=== PATIENT | female | born 1955 | race Caucasian/White ===

== ENCOUNTER → 2016-10-10 | Outpatient (CLI) | payer BC | LOC: LAB 10:05 | DX: R30.0 Dysuria (principal) ==

== ENCOUNTER → 2017-05-19 | Outpatient (CLI) | payer OTHER ==
[2017-05-19 12:55] LABS: EOS # 0.3 (0.04-0.40); EOS % 5.4 % (1.0-5.0); HEMATOCRIT 43.2 % (37.0-47.0); HEMOGLOBIN 14.6 g/dL (12.5-16.0); MEAN CELL VOLUME 90 fl (78-100); MEAN CORPUSCULAR HEMOGLOBIN 30 pg (27-31); MEAN CORPUSCULAR HGB CONC 34 g/dL (33-37); MEAN PLATELET VOLUME 8.5 fl (7.4-10.4); MONO # 0.3 (0.20-0.80); NEU # 2.2 (1.40-6.50); PLATELET COUNT 254 K/mm3 (130-400); RED BLOOD COUNT 4.81 M/mm3 (4.10-5.30); RED CELL DISTRIBUTION WIDTH 12.7 % (11.5-14.5); WHITE BLOOD COUNT 4.8 K/mm3 (4.8-10.8)
[2017-05-19 13:01] LABS: ALBUMIN 4.4 g/dL (3.5-5.0); BUN/CREATININE RATIO 23.6 (6.0-26.0); CALCIUM 10.2 mg/dL (8.4-10.2); POTASSIUM 4.1 mmol/L (3.6-5.0); TOTAL BILIRUBIN 0.8 mg/dL (0.2-1.3); TOTAL PROTEIN 8.8 g/dL (6.3-8.2)
[2017-05-19 14:11] LABS: ERYTHROCYTE SEDIMENTATION RATE 33 mm/hr (0-30)
[2017-05-20 13:55] LABS: T3 TOTAL 165 ng/dL (87-178)
== END ==
LOC: RAD 12:31
PROVIDERS: Internal Medicine
DX: M25.561 Pain in right knee (principal); Z00.00 Encounter for general adult medical examination without abnormal findings; E05.10 Thyrotoxicosis with toxic single thyroid nodule without thyrotoxic crisis or storm; M85.80 Other specified disorders of bone density and structure, unspecified site

== ENCOUNTER → 2019-01-22 | Outpatient (CLI) | payer OTHER ==
[2019-01-22 11:27] LABS: EOS # 0.3 (0.04-0.40); EOS % 4.4 % (1.0-5.0); HEMATOCRIT 42.4 % (37.0-47.0); HEMOGLOBIN 14.1 g/dL (12.5-16.0); MEAN CELL VOLUME 91 fl (78-100); MEAN CORPUSCULAR HEMOGLOBIN 30 pg (27-31); MEAN CORPUSCULAR HGB CONC 33 g/dL (33-37); MONO # 0.5 (0.20-0.80); NEU # 2.9 (1.40-6.50); PLATELET COUNT 247 K/mm3 (130-400); RED BLOOD COUNT 4.67 M/mm3 (4.10-5.30); RED CELL DISTRIBUTION WIDTH 12.6 % (11.5-14.5); WHITE BLOOD COUNT 5.7 K/mm3 (4.8-10.8)
[2019-01-22 12:47] LABS: ERYTHROCYTE SEDIMENTATION RATE 39 mm/hr (0-30)
[2019-01-22 12:51] LABS: ALBUMIN 4.2 g/dL (3.4-4.8)
[2019-01-22 12:52] LABS: POTASSIUM 4.8 mmol/L (3.5-5.1)
[2019-01-22 12:53] LABS: CALCIUM 10.1 mg/dL (8.3-10.5)
[2019-01-22 12:54] LABS: TOTAL PROTEIN 7.7 g/dL (6.2-8.1)
[2019-01-22 12:56] LABS: TOTAL BILIRUBIN 0.6 mg/dL (0.2-1.2)
[2019-01-23 01:24] LABS: T3 TOTAL 109 ng/dL (87-178)
== END ==
LOC: LAB 11:03
PROVIDERS: Internal Medicine
DX: Z00.00 Encounter for general adult medical examination without abnormal findings (principal); E05.10 Thyrotoxicosis with toxic single thyroid nodule without thyrotoxic crisis or storm; M85.80 Other specified disorders of bone density and structure, unspecified site

== ENCOUNTER → 2020-05-05 | Outpatient (CLI) | payer MEDICARE ==
[2020-05-05 09:52] LABS: EOS # 0.3 (0.04-0.40); EOS % 5.9 % (1.0-5.0); HEMATOCRIT 42.4 % (37.0-47.0); LYMPH# 1.8 (1.50-4.00); MEAN CELL VOLUME 91 fl (78-100); MEAN CORPUSCULAR HEMOGLOBIN 30 pg (27-31); MEAN CORPUSCULAR HGB CONC 33 g/dL (33-37); MEAN PLATELET VOLUME 8.1 fl (7.4-10.4); MONO # 0.5 (0.20-0.80); NEU # 2.4 (1.40-6.50); PLATELET COUNT 237 K/mm3 (130-400); RED BLOOD COUNT 4.67 M/mm3 (4.10-5.30); RED CELL DISTRIBUTION WIDTH 12.5 % (11.5-14.5); WHITE BLOOD COUNT 5.1 K/mm3 (4.8-10.8)
[2020-05-05 10:05] LABS: ALBUMIN 4.1 g/dL (3.4-4.8); POTASSIUM 4.2 mmol/L (3.5-5.1)
[2020-05-05 10:06] LABS: CALCIUM 9.5 mg/dL (8.3-10.5)
[2020-05-05 10:09] LABS: TOTAL BILIRUBIN 0.7 mg/dL (0.2-1.2)
[2020-05-05 10:58] LABS: ERYTHROCYTE SEDIMENTATION RATE 37 mm/hr (0-30)
[2020-05-05 21:54] LABS: T3 TOTAL 112 ng/dL (58-159)
== END ==
LOC: RAD 09:32
PROVIDERS: Internal Medicine
DX: E05.10 Thyrotoxicosis with toxic single thyroid nodule without thyrotoxic crisis or storm (principal)

== ENCOUNTER → 2021-05-08 | Outpatient (CLI) | payer MEDICARE ==
[2021-05-08 10:14] LABS: BASO # 0.03 K/mm3 (0.02-0.10); EOS # 0.22 K/mm3 (0.04-0.40); EOS % 5.3 % (1.0-5.0); HEMATOCRIT 43.2 % (37.0-47.0); HEMOGLOBIN 14.6 g/dL (12.5-16.0); LYMPH# 1.88 K/mm3 (1.50-4.00); MEAN CELL VOLUME 91 fl (78-100); MEAN CORPUSCULAR HEMOGLOBIN 31 pg (27-31); MEAN CORPUSCULAR HGB CONC 34 g/dL (33-37); MEAN PLATELET VOLUME 8.2 fl (7.4-10.4); MONO # 0.35 K/mm3 (0.20-0.80); NEU # 1.69 K/mm3 (1.40-6.50); PLATELET COUNT 234 K/mm3 (130-400); RED BLOOD COUNT 4.76 M/mm3 (4.10-5.30); RED CELL DISTRIBUTION WIDTH 12.3 % (11.5-14.5); WHITE BLOOD COUNT 4.2 K/mm3 (4.8-10.8)
[2021-05-08 10:46] LABS: ALBUMIN 4.3 g/dL (3.4-4.8); POTASSIUM 4.2 mmol/L (3.5-5.1)
[2021-05-08 10:49] LABS: TOTAL PROTEIN 8.4 g/dL (6.2-8.1)
[2021-05-08 11:25] LABS: ERYTHROCYTE SEDIMENTATION RATE 39 mm/hr (0-30)
[2021-05-09 01:51] LABS: T3 FREE 3.4 pg/mL (1.7-3.7)
== END ==
LOC: LAB 09:43
PROVIDERS: Internal Medicine
DX: Z12.39 Encounter for other screening for malignant neoplasm of breast (principal); Z28.3 Underimmunization status; U07.1 COVID-19; M85.80 Other specified disorders of bone density and structure, unspecified site; E78.2 Mixed hyperlipidemia; E05.90 Thyrotoxicosis, unspecified without thyrotoxic crisis or storm; I10 Essential (primary) hypertension

== ENCOUNTER → 2021-06-06 | Outpatient (CLI) | payer MEDICARE | LOC: MAMMO 05-24 10:45 | DX: Z12.31 Encounter for screening mammogram for malignant neoplasm of breast (principal) ==

== ENCOUNTER → 2023-06-26 | Outpatient (CLI) | payer MEDICARE ==
[2023-06-26 09:35] LABS: BASO # 0.04 K/mm3 (0.02-0.10); EOS # 0.19 K/mm3 (0.04-0.40); EOS % 4.8 % (1.0-5.0); HEMATOCRIT 41.5 % (37.0-47.0); LYMPH# 1.52 K/mm3 (1.50-4.00); MEAN CELL VOLUME 91 fl (78-100); MEAN CORPUSCULAR HEMOGLOBIN 31 pg (27-31); MEAN CORPUSCULAR HGB CONC 34 g/dL (33-37); MEAN PLATELET VOLUME 7.9 fl (7.4-10.4); MONO # 0.34 K/mm3 (0.20-0.80); NEU # 1.84 K/mm3 (1.40-6.50); PLATELET COUNT 205 K/mm3 (130-400); RED BLOOD COUNT 4.54 M/mm3 (4.10-5.30); RED CELL DISTRIBUTION WIDTH 12.2 % (11.5-14.5); WHITE BLOOD COUNT 3.9 K/mm3 (4.8-10.8)
[2023-06-26 09:51] LABS: ALBUMIN 4.1 g/dL (3.4-4.8)
[2023-06-26 09:52] LABS: CALCIUM 9.5 mg/dL (8.3-10.5)
[2023-06-26 09:54] LABS: TOTAL PROTEIN 7.3 g/dL (6.2-8.1)
[2023-06-26 09:55] LABS: TOTAL BILIRUBIN 0.7 mg/dL (0.2-1.2)
[2023-06-26 10:00] LABS: MAGNESIUM 2.02 mg/dL (1.60-2.60)
[2023-06-26 23:33] LABS: T3 FREE 2.8 pg/mL (1.7-3.7)
[2023-06-27 08:51] LABS: HEPATITIS C VIRUS ANTIBODY Negative (Negative)
== END ==
LOC: LAB 09:19
PROVIDERS: Internal Medicine
DX: Z12.11 Encounter for screening for malignant neoplasm of colon (principal); Z11.59 Encounter for screening for other viral diseases; E78.2 Mixed hyperlipidemia; M85.80 Other specified disorders of bone density and structure, unspecified site; E05.10 Thyrotoxicosis with toxic single thyroid nodule without thyrotoxic crisis or storm; K90.9 Intestinal malabsorption, unspecified